=== PATIENT | female | born 1995 | race Caucasian/White ===

== ENCOUNTER 2016-08-05 09:59 | Emergency (ER) | payer OTHER | END 2016-08-05 13:00 | disposition home or self-care (01) | LOC: ER1 09:59 | DX: R51 Headache (principal); R11.0 Nausea; H57.8 Other specified disorders of eye and adnexa; Z88.1 Allergy status to other antibiotic agents; E07.9 Disorder of thyroid, unspecified; Z79.899 Other long term (current) drug therapy | CPT/HCPCS: 96361; 96374; 96375; 99283; J1200; J1885; J2765 ==